=== PATIENT | male | born 2000 | race African-American/Black ===

== ENCOUNTER 2021-05-05 15:26 | Emergency (ER) | payer OTHER ==
[2021-05-05 15:36] VITALS: BP 129/75
--- NOTE | 2021-05-05 15:44 | ED Physician Documentation ---
History of Present Illness - Stated complaint Stated Complaint: RT TOENAIL PX & NUMBNESS - Chief complaint Chief Complaint: Ext Problem - History obtained from History obtained from: Patient - Additonal information Additional information: Presents with right great toenail concern. He sustained trauma to the nail several months ago. It appears that he may have had a subungual hematoma that has dissipated And the nail has popped off somewhat from the nailbed partially and new nail is growing in underneath it. He was concerned because he cannot feel the nail though I advised him that it is at this point and is popped up from the nailbed he can feel a small area that is still attached. He has not had redness, drainage, swelling, pain.I Review of Systems Constitutional: reports: Reviewed and negative Skin: reports: Reviewed and negative Musculoskeletal: reports: Reviewed and negative PD PAST MEDICAL HISTORY - Past Medical History Past Medical History: No - Present Medications Home Medications: Ambulatory Orders Medication Instructions Recorded Confirmed No Known Home Medications 05/05/21 05/05/21 - Allergies Allergies/Adverse Reactions: Allergies Allergy/AdvReac Type Severity Reaction Status Date / Time latex Allergy Edema Verified 05/05/21 15:32 PD ED PE NORMAL - Vitals Vital signs reviewed: Yes - General General: Alert and oriented X 3, No acute distress, Well developed/nourished - Derm Derm: Normal color, Warm and dry, No rash - Neuro Eye Opening: Spontaneous Motor: Obeys Commands Verbal: Oriented GCS Score: 15 - Psych Psych: Normal mood, Normal affect - Free text exam Free text exam: The right great toenail is partially lifted from the nail bed and there is new nail growing underneath it. The lateral edge of the nail remains attached to the nailbed and is growing healthy. There is no surrounding erythema, no drainage, no tenderness. He has normal sensation of the toe. Results - Vitals Vitals: Vital Signs - 24 hr 05/05/21 15:33 Temperature 98.1 C H Heart Rate 56 L Respiratory 16 Rate Blood Pressure 129/75 O2 Saturation 99 Oxygen O2 Source Room air PD MEDICAL DECISION MAKING - ED course Complexity details: d/w patient ED course: Presented with toenail concern as above. The nail was and partially lifted from the nail bed but remains protective of the nailbed below. Advised that we keep it in place at this time it is not infected, is not snagging on anything and there is no pain. I reassured him that the nail would pop off as the other nail groove underneath it. I discussed home care including treatment nail as he normally would, avoiding trimming too short, keeping area clean and dry but he does not need to apply any special ointment or other treatment. Departure - Departure Disposition: Home, Self Care Clinical Impression: Injury of toenail of right foot Qualifiers: Encounter type: initial encounter Qualified Code(s): S99.921A - Unspecified injury of right foot, initial encounter Condition: Good Comments: You presented with concerns about your toenail. You sustained trauma to the nail several months ago. The nail itself is primarily at this point but is still providing protection to the nailbed below. It would leave this in place as there is no signs of infection. It will slowly grow out and pop off as the new nail comes in underneath it. There is nothing special to do, keep it clean as you normally would in the shower, keep trimming it as it comes up but do not trim it to short and do not try to begin to the nail as you can cause infection.
== END 2021-05-05 15:47 | disposition home or self-care (01) ==
LOC: ED 15:26
DX: S99.921A Unspecified injury of right foot, initial encounter (principal); X58.XXXA Exposure to other specified factors, initial encounter
CPT/HCPCS: 99281; 99282

== ENCOUNTER 2021-10-29 17:00 | Emergency (ER) | payer OTHER ==
--- NOTE | 2021-10-29 17:11 | ED Physician Documentation ---
PD HPI MALE - Stated complaint Stated Complaint: MALE - Chief complaint Chief Complaint: General - History obtained from History obtained from: Patient - History of Present Illness Timing - onset: How many days ago (intermittent for several days, pain left inguinal and scrotal area. No swelling. Onset after working out.) Timing - duration: Days Timing - details: Abrupt onset, Still present, Waxing and waning (worse wtih lifting leg, walking, and up from sitting.) Associated symptoms: Testiclar pain (left side upper scrotum.). No: Dysuria, Urinary frequency, Discharge, Scrotal swelling Similar symptoms before: Has not had sx before Review of Systems Constitutional: denies: Fever, Chills Nose: denies: Rhinorrhea / runny nose, Congestion Throat: denies: Sore throat Respiratory: denies: Cough GI: denies: Abdominal Pain, Nausea, Vomiting, Diarrhea : denies: Dysuria, Hematuria, Discharge Skin: denies: Rash PD PAST MEDICAL HISTORY - Past Medical History Cardiovascular: None Respiratory: None GI: None : None - Present Medications Home Medications: Ambulatory Orders Medication Instructions Recorded Confirmed No Known Home Medications 05/05/21 10/29/21 - Allergies Allergies/Adverse Reactions: Allergies Allergy/AdvReac Type Severity Reaction Status Date / Time latex Allergy Edema Verified 05/05/21 15:32 PD ED PE NORMAL - Vitals Vital signs reviewed: Yes - General General: Alert and oriented X 3, No acute distress, Well developed/nourished - Abdomen Abdomen: Normal bowel sounds, Soft, Non tender, Non distended - Male Male : Other (left inguinal area without hernia nor nodes. Left scrotal area tender without obvious swelling of testicle. Tenderness is upper epididymis and along backside of testicle. Normal cremaster reflex. ) - Rectal Rectal: Deferred - Back Back: No CVA TTP Results - Vitals Vitals: Oxygen O2 Source Room air - Labs Labs: Laboratory Tests 10/29/21 10/29/21 18:28 18:28 Urine Color YELLOW Urine Clarity CLEAR Urine pH 6.0 Ur Specific [place] >=1.030 H Urine Protein NEGATIVE Urine Glucose (UA) NEGATIVE Urine Ketones NEGATIVE Urine Occult Blood NEGATIVE Urine Nitrite NEGATIVE Urine Bilirubin NEGATIVE Urine Urobilinogen 0.2 (NORMAL) Ur Leukocyte Esterase NEGATIVE Ur Microscopic Review NOT INDICATED Urine Culture Comments NOT INDICATED Chlam trachomat DNA PCR NEGATIVE N.gonorrhoeae DNA (PCR) NEGATIVE T. vaginalis (PCR) TNP - Rads (name of study) scrotal U/S Radiology: Prelim report reviewed (normal, no acute process. ), See rad report PD MEDICAL DECISION MAKING - ED course Complexity details: reviewed results, considered differential (likely strain of epidiymis and cremaster/inguinal muscles. Can get U/S to ensure no structural abnormal, but clinically feels normal. ), d/w patient Departure - Departure Disposition: 01 Home, Self Care Clinical Impression: Inguinal strain Qualifiers: Encounter type: initial encounter Laterality: left Qualified Code(s): S76.212A - Strain of adductor muscle, fascia and tendon of left thigh, initial encounter Condition: Stable Record reviewed to determine appropriate education?: Yes Instructions: ED Strain Groin Follow-Up: ELIDIA Greene [Provider Group] Comments: Your ultrasound appears normal without any signs of altered flow to the testicle nor any structural abnormality. Your urine test is without any signs of infection. I presume its strain of the muscle in the groin and scrotal area. There can be some stretching of the epididymis with inflammation as well. Limit activity without any running jumping or heavy lifting for 3 to 4 days. I would suggest Advil/ibuprofen 600 mg (which is 3 [id number] tablets) 2-3 times daily with food for the next 5 or 6 days. To that add Tylenol every 4 hours if needed for pain. Follow-up with your primary if not improved over the next 3 to 5 days. We did do a culture test of the urine as well and will call you if there is any signs of infection develop from that over the next couple of days. Forms: Activity restrictions Discharge Date/Time: 10/29/21 19:00
[2021-10-29 18:35] LABS: BILIRUBIN,URINE NEGATIVE (NEGATIVE); GLUCOSE, URINE (UA) NEGATIVE (NEGATIVE); KETONES,URINE (UA) NEGATIVE (NEGATIVE); LEUKOCYTE ESTERASE, URINE NEGATIVE (NEGATIVE); NITRITE,URINE NEGATIVE (NEGATIVE); OCCULT BLOOD,URINE NEGATIVE (NEGATIVE); PROTEIN,URINE NEGATIVE (NEGATIVE); UROBILINOGEN,URINE 0.2 (NORMAL) E.U./dL (NORMAL)
[2021-10-29 18:37] LABS: CLARITY,URINE CLEAR (CLEAR)
--- NOTE | 2021-10-29 18:38 | Ultrasound Report ---
PROCEDURE: Testicle w/Doppler INDICATIONS: Left scrotal pain TECHNIQUE: Real-time scanning was performed of the scrotum and testicles, with image documentation. Color and p ulse Doppler interrogation was performed of both testicles. COMPARISON: None. FINDINGS: Right: Testicle is normal in size at 2.2 x 3.1 x 4.4 cm, and homogenous in echotexture. Epididymis is normal in overall size and morphology. No hydrocele or varicoceles. Overlying scrotal skin is no rmal in thickness. Left: Testicle is normal in size at 2.2 x 2.8 x 4.2 cm, and homogeneous in echotexture. Epididymis is normal in overall size and morphology. No hydrocele or varicoceles. Overlying scrotal skin is no rmal in thickness. Doppler: Color and pulse Doppler demonstrate normal and symmetric arterial flow in both testicles. IMPRESSION: No acute finding. Reviewed by: Dante Martinez MD on 10/29/2021 6:37 PM PDT Approved by: Dante Martinez MD on 10/29/2021 6:37 PM PDT Station ID: [id number]
[2021-10-29 18:59] VITALS: BP 141/75
[2021-10-29 23:46] LABS: CHLAMYDIA TRACHOMATIS DNA NEGATIVE (NEGATIVE); NEISSERIA GONORRHOEAE DNA NEGATIVE (NEGATIVE)
== END 2021-10-29 19:00 | disposition home or self-care (01) ==
LOC: ED 17:00
DX: S76.212A Strain of adductor muscle, fascia and tendon of left thigh, initial encounter (principal); X58.XXXA Exposure to other specified factors, initial encounter
CPT/HCPCS: 81001; 81003; 87086; 87491; 87591; 87661; 93975; 99282; 99284

== ENCOUNTER 2023-05-16 20:41 | Emergency (ER) | payer OTHER ==
[2023-05-16 20:54] VITALS: BP 140/90; O2SAT 99
--- NOTE | 2023-05-16 20:54 | ED Physician Documentation ---
History of Present Illness - Stated complaint Stated Complaint: - Chief complaint Chief Complaint: General - History obtained from History obtained from: Patient - Additonal information Additional information: He was seen here 2 months ago for chlamydia and treated. He returns tonight for retesting. He is asymptomatic. He wants to make sure that he is "good to go." PD PAST MEDICAL HISTORY - Past Medical History Cardiovascular: None Respiratory: None GI: None : None - Present Medications Home Medications: Ambulatory Orders Medication Instructions Recorded Confirmed Doxycycline Hyclate 100 mg PO BID #14 cap 02/28/23 - Allergies Allergies/Adverse Reactions: Allergies Allergy/AdvReac Type Severity Reaction Status Date / Time latex Allergy Edema Verified 05/16/23 20:43 PD ED PE NORMAL - Vitals Vital signs reviewed: Yes - General General: Alert and oriented X 3, No acute distress - Neuro Neuro: Alert and oriented X 3, Normal speech - Psych Psych: Normal mood, Normal affect Results - Vitals Vitals: Vital Signs - 24 hr 05/16/23 20:43 Temperature 36.5 C Heart Rate 61 Respiratory 16 Rate Blood Pressure 140/90 H O2 Saturation 99 Oxygen O2 Source Room air PD Medical Decision Making - ED course ED course: 22-year-old gentleman wanting retesting for chlamydia treated 2 months ago. He is asymptomatic. I did discuss with him that this was inappropriate use of the emergency department but the requested test was sent. Departure - Departure Disposition: 01 Home, Self Care Clinical Impression: Concern about STD in male without diagnosis Condition: Good Record reviewed to determine appropriate education?: Yes Instructions: ED Urethritis Chlamydia Male Comments: You were seen today in the emergency department because you wanted to make sure that the chlamydia you had 2 months ago is completely gone. We are running a test for that. In the future, please try to use the emergency department for emergent complaints or at least urgent complaints, [place]. Forms: PCP List
[2023-05-16 23:05] LABS: CHLAMYDIA TRACHOMATIS DNA NEGATIVE (NEGATIVE); NEISSERIA GONORRHOEAE DNA NEGATIVE (NEGATIVE); TRICHOMONAS VAGINALIS DNA NEGATIVE (NEGATIVE)
== END 2023-05-16 21:01 | disposition home or self-care (01) ==
LOC: ED 20:41
DX: Z20.2 Contact with and (suspected) exposure to infections with a predominantly sexual mode of transmission (principal)
CPT/HCPCS: 87491; 87591; 87661; 99282; 99283